=== PATIENT | female | born 1925 | race Caucasian/White ===

== ENCOUNTER 2016-08-17 13:14 | Emergency (ER) | payer MEDICARE, BC ==
[2016-08-17] MEDS ORDERED: Sodium Chloride 0.9% 1,000 ML IV ONE (13:27)
[2016-08-17] MEDS ORDERED: Sodium Chloride 0.9% 10 ML Syringe FLUSH PRN (13:28)
[2016-08-17] MEDS ORDERED: Ondansetron 4 MG/2 ML SDV IVPUSH ONE (13:28)
[2016-08-17] MEDS ORDERED: Loperamide 2 MG Cap PO ONE (13:29)
[2016-08-17 14:10] LABS: CHLORIDE,CL 109 mmol/L (98-107); SODIUM,NA 145 mmol/L (136-145)
[2016-08-17 14:23] VITALS: BP 148/74
--- NOTE | 2016-08-20 07:50 | ER ---
Date of Service: 08/17/2016 SUBJECTIVE: Cyndi presents to the emergency room with complaints of diarrhea that she has been experiencing intermittently for the past 3 months. She states that this morning the symptoms were more sudden and she felt somewhat weak. She states that she has been followed for this in the clinic and it is thought that her diarrhea is secondary to post cholecystectomy diarrhea. She states that she has not been experiencing any fever or chills. She states that she has been told to take Imodium as needed for the diarrhea, but only takes this when she goes to "play bridge." She states that she is not nauseated and has not been experiencing any vomiting. PAST MEDICAL HISTORY: 1. Dyslipidemia. 2. Hypertension. 3. Cholelithiasis and cholecystectomy. 4. Hypertension. 5. Dyslipidemia. 6. Numerous allergies. MEDICATIONS: 1. Atorvastatin. 2. Multivitamin. 3. Lisinopril. 4. Osteo Bi-Flex. 5. Calcium plus D. 6. Acetaminophen. ALLERGIES: 1. Dipyridamole. 2. Doxycycline. 3. Azithromycin. 4. Hydrocodone. 5. Iodine. 6. Penicillin. 7. Lyrica. 8. Ciprofloxacin. 9. Labetalol. REVIEW OF SYSTEMS: General: No fever or chills. HEENT: No sore throat, rhinorrhea, or congestion. Respiratory: No shortness of breath. Cardiac: Denies any substernal chest pain. No jaw, arm, neck, or back pain. GI: Complains only of diarrhea. No melena, hematochezia, or hematemesis. : Denies any dysuria. Musculoskeletal: No myalgias or arthralgias. Neurologic: No fainting, blackouts, or lightheadedness. Again, she does complain of feeling "weak." PHYSICAL EXAMINATION: General: This is an 89-year-old female patient, who is not acutely distressed. Vital Signs: Blood pressure is 148/74, pulse rate is 77, temperature is 37.2, O2 saturations 94%. Skin: Warm, pink, and dry. HEENT: Mouth, oral mucosa is moist. Lungs: Clear to auscultation. Heart: Regular rate and rhythm. Abdomen: Soft, nontender. There is no hepatosplenomegaly noted. There are no masses noted. Extremities: Without edema. Neurologic: She is alert and oriented, answers all questions appropriately. Her speech is fluent. Her gait is within normal limits. RADIOGRAPHIC DATA: Abdominal complete series was obtained. There was no evidence of any acute obstruction or free air. LABORATORY DATA: WBCs 5.3, hemoglobin is 12.8, platelets are 221. Chemistry: Sodium is 145, potassium is 4.0, chloride is 109, bicarb is 27, BUN is 20, creatinine is 0.7, GFR is greater than 60, glucose is 117. Calcium is 8.4. Total calcium is 8.8, total bilirubin is 1.0, AST is 18, ALT is 23, alkaline phosphatase is 78. C-reactive protein is less than 0.2. Total protein is 6.4, albumin is 3.4. Urinalysis was obtained. Specific gravity is 1.015, negative for protein, glucose, ketones, occult blood, nitrites, and leukocyte esterase. EMERGENCY ROOM COURSE: IV access was established. She was given approximately 750 mL saline fluid bolus. When asked how she was feeling, she stated that she felt that she "did not feel any worse" and requested that she be allowed to go home. ASSESSMENT: 1. Chronic diarrhea. 2. Acute weakness. PLAN: The patient will be discharged. She was given a dose of Imodium here in the emergency room and was advised to do the same for a total of 6 doses in 24 hours to start with as this could subsequently cause constipation. All questions were answered. MWK: 08/19/2016 18:51:07 MODL: 08/19/2016 22:53:57 /[id number]
== END 2016-08-17 15:55 | disposition home or self-care (01) ==
LOC: VM.ED 13:14
DX: K52.9 Noninfective gastroenteritis and colitis, unspecified (principal); E78.5 Hyperlipidemia, unspecified; I10 Essential (primary) hypertension; Z88.1 Allergy status to other antibiotic agents; Z88.5 Allergy status to narcotic agent; Z88.8 Allergy status to other drugs, medicaments and biological substances
CPT/HCPCS: 36415; 74022; 80053; 81001; 85025; 86140; 96360; 96361; 99285; A9270; J7030; 99283-GF